=== PATIENT | female | born 1980 | race Caucasian/White ===

== ENCOUNTER 2018-03-25 09:57 | Inpatient (IN) ==
--- NOTE | 2018-03-25 10:45 | ED ---
History of Present Illness Primary Care Physician: Catalino Cooper Chief Complaint: Shortness of breath History of Present Illness: Patient is a 38-year-old white female now at [address] Cooper at [facility] for care and presents complaining of shortness of breath began yesterday and seems to be getting worse. She has no history of respiratory disease no history of asthma no similar history of this type of problem before. She is breathing of about 20 times a minute and interestingly she also is quite tachycardic with a heart rate in the 140-160s and she has no history of this type of problem either. She denies abdominal pain however she is rm every 2-1/2 minutes, denies leaking of fluid or vaginal bleeding. heart rate tracing is reactive at this time however when she was first placed on the monitor the baby's heart rate was in the 90s and it came up to in the 145 150 range in that range she has moderate variability and has had several small accelerations on left color reactive but just barely so, she is a negative contraction stress test however Weeks Gestation:: 39 Para: 2 : 4 Total # of Miscarriage(s): 1 Review of Systems All other systems reviewed negative except as stated [facility] - Social History I have reviewed the patient's Social History: Yes - Tobacco History Smoking Status: Never smoker - Alcohol History How Often Do You Have a Drink Containing Alcohol: Never - Substance Use History Substance History: No History of Abuse - Travel History History of Recent Travel: No Recent Travel in the [place] Within the Last 8 Weeks: No Recent Travel Out of the Country Within the Last 8 Weeks: No Medications and Allergies Allergies Allergy/AdvReac Type Severity Reaction Status Date / Time No Known Allergies Uncoded 12/14/10 12:32 Exam Vital signs: Vital Signs 03/25/18 10:20 03/25/18 10:21 Temperature 97.9 F Pulse Rate 157 H Respiratory Rate 20 Blood Pressure 109/75 Narrative: GENERAL: Well-nourished, well-developed patient. SKIN: Warm and dry. HEAD: Normocephalic and atraumatic. EYES: No scleral icterus. No injection or drainage. ENT: No nasal drainage noted. Mucous membranes pink. Airway patent. NECK: Supple, trachea midline. No JVD. CARDIOVASCULAR: Tachycardic rate and regular rhythm without murmurs, gallops, or rubs. RESPIRATORY: Breath sounds equal bilaterally. No accessory muscle use. BREASTS: Bilateral exam showed no masses , no retractions, no nipple discharge. ABDOMEN/GI: Abdomen soft, non-tender, bowel sounds present, no rebound, no guarding Gravid to [-37] weeks size Fundal Height: [37-] GENITOURINARY: External Genitalia: intact and normal in appearance BUS glands: [-] Cervix: [-post] Dilatation: [2-3-] Effacement: [-40] Station: [-1] Presentation: [Vertex, the head is quite low in the pelvis but cervix goes around posteriorly and is very far back-] Membranes: [intact ] Uterine Contractions: [Every 2-1/2 minutes-] FHT's: Category: [1-] Baseline: [-145] Reactive: [-Suspicious NST] Variability: [mod-] Decels: [-1 variable decelerations once placed on the monitor none since] EXTREMITIES: No cyanosis or edema. BACK: Nontender without obvious deformity. No CVA tenderness. NEUROLOGICAL: Awake and alert. Motor and sensory grossly within normal limits. Five out of 5 muscle strength in all muscle groups. Normal speech. Assessment and Plan - Diagnosis (1) Shortness of breath due to in third trimester Code(s): O26.893 - Other specified related conditions, third trimester ; R06.02 - Shortness of breath Status: Acute (2) Tachycardia with heart rate 141-160 beats per minute Code(s): R00.0 - Tachycardia, unspecified Status: Acute (3) 39 weeks gestation of Code(s): Z3A.39 - 39 weeks gestation of Status: Acute - Plan Plan for this multiparous patient at 39 weeks with tachycardia and shortness of breath is VQ scan or CT scan depending on the ease of availability to rule out pulmonary embolus, prolonged monitoring of fetus, will discuss patient with her OB private provider Discharge Plan - Physicians Team ED Provider: Bob Lobato Primary Care Provider: Catalino Escobar - Discharge Instructions Print Language: Niuean
[2018-03-25 11:02] LABS: Hematocrit 34.4 % (35.0-46.0); Hemoglobin 10.9 gm/dL (11.6-15.3); Mean Corpuscular HGB Conc 31.8 % (32.0-36.0); Mean Corpuscular Hemoglobin 23.5 pg (27.0-34.0); Mean Corpuscular Volume 74.1 fL (80.0-100.0); Mean Platelet Volume 7.9 fL (7.0-11.0); Platelet Count 307 th/mm3 (150-450); Red Blood Count 4.65 mil/mm3 (4.00-5.30); Red Cell Distribution Width 16.4 % (11.6-17.2); White Blood Count 7.5 th/mm3 (4.0-11.0)
[2018-03-25 11:18] LABS: Alanine Aminotransferase 10 U/L (10-53); Albumin 2.7 g/dL (3.4-5.0); Anion Gap 10 meq/L (5-15); Aspartate Aminotransferase 16 U/L (15-37); Blood Urea Nitrogen 8 mg/dL (7-18); Calcium 8.6 mg/dL (8.5-10.1); Carbon Dioxide 22.7 meq/L (21.0-32.0); Chloride 103 meq/L (98-107); Glomerular Filtration Rate 62 mL/min (>89); Glucose,Random 98 mg/dL (74-106); Sodium 136 meq/L (136-145)
[2018-03-25 11:20] LABS: Alkaline Phosphatase 177 U/L (45-117); Total Protein 7.5 g/dL (6.4-8.2)
--- NOTE | 2018-03-25 12:59 | NM ---
EXAM DATE: 03/25/2018 12:46 PM EST AGE/SEX: 38 years / Female INDICATIONS: Shortness of breath. 39 weeks . CLINICAL DATA: This is the patient's initial encounter. Patient reports that signs and symptoms have been present for 2 days and indicates a pain score of 0/10. MEDICAL/SURGICAL HISTORY: None. None. COMPARISON: [facility], CHEST 1V SINGLE AP, 03/25/2018. . DOSE: 1 mCi Tc99m MAA IV. TECHNIQUE: The patient was injected with MAA, and eight-view perfusion scan was performed. FINDINGS: Perfusion: Multiple peripheral subsegmental perfusion abnormalities are identified in both lungs. Th ere are no corresponding radiographic lung opacities. CONCLUSION: Multiple bilateral subsegmental perfusion abnormalities characteristic of a high risk of pulmonary em bolism. Electronically signed by: Hi Moses MD Board Certified Radiologist 03/25/2018 12:58 PM EST
--- NOTE | 2018-03-25 13:03 | XR ---
EXAM DATE: 03/25/2018 12:57 PM EST AGE/SEX: 38 years / Female INDICATIONS: Post lung perfusion scan. CLINICAL DATA: This is the patient's initial encounter. Patient reports that signs and symptoms have been present for 1 day and indicates a pain score of 0/10. MEDICAL/SURGICAL HISTORY: None. None. COMPARISON: No prior exams available for comparison. FINDINGS: A single AP view of the chest demonstrates the lungs to be symmetrically aerated without evidence of mass, infiltrate or effusion. The cardiomediastinal contours are unremarkable. Osseous structures a re intact. CONCLUSION: No evidence of acute cardiopulmonary process. Electronically signed by: Hi Moses MD Board Certified Radiologist 03/25/2018 1:02 PM EST
--- NOTE | 2018-03-25 13:25 | P.HPOB ---
Patient Name: Cathie De Leon Date of : 82 Patient Status: Emergency Emergency Provider: Bob Lobato Date: 03/25/18 10:38 Initialization Date: 03/25/18 10:38 Addendum entered and electronically signed by Bob Lobato MD 03/25/18 13:17: Perfusion radiogragh -- multiple PE likely bilaterally Original Note: History of Present Illness Primary Care Physician: Catalino Cooper Chief Complaint: Shortness of breath History of Present Illness: Patient is a 38-year-old white female now at [address] Cooper at [facility] for care and presents complaining of shortness of breath began yesterday and seems to be getting worse. She has no history of respiratory disease no history of asthma no similar history of this type of problem before. She is breathing of about 20 times a minute and interestingly she also is quite tachycardic with a heart rate in the 140-160s and she has no history of this type of problem either. She denies abdominal pain however she is rm every 2-1/2 minutes, denies leaking of fluid or vaginal bleeding. heart rate tracing is reactive at this time however when she was first placed on the monitor the baby's heart rate was in the 90s and it came up to in the 145 150 range in that range she has moderate variability and has had several small accelerations on left color reactive but just barely so, she is a negative contraction stress test however Weeks Gestation:: 39 Para: 2 : 4 Total # of Miscarriage(s): 1 Review of Systems All other systems reviewed negative except as stated [facility] - Social History I have reviewed the patient's Social History: Yes - Tobacco History Smoking Status: Never smoker - Alcohol History How Often Do You Have a Drink Containing Alcohol: Never - Substance Use History Substance History: No History of Abuse - Travel History History of Recent Travel: No Recent Travel in the [place] Within the Last 8 Weeks: No Recent Travel Out of the Country Within the Last 8 Weeks: No Medications and Allergies Allergies Allergy/AdvReac Type Severity Reaction Status Date / Time No Known Allergies Uncoded 12/14/10 12:32 Exam Vital signs: Vital Signs 03/25/18 10:20 03/25/18 10:21 Temperature 97.9 F Pulse Rate 157 H Respiratory Rate 20 Blood Pressure 109/75 Narrative: GENERAL: Well-nourished, well-developed patient. SKIN: Warm and dry. HEAD: Normocephalic and atraumatic. EYES: No scleral icterus. No injection or drainage. ENT: No nasal drainage noted. Mucous membranes pink. Airway patent. NECK: Supple, trachea midline. No JVD. CARDIOVASCULAR: Tachycardic rate and regular rhythm without murmurs, gallops, or rubs. RESPIRATORY: Breath sounds equal bilaterally. No accessory muscle use. BREASTS: Bilateral exam showed no masses , no retractions, no nipple discharge. ABDOMEN/GI: Abdomen soft, non-tender, bowel sounds present, no rebound, no guarding Gravid to [-37] weeks size Fundal Height: [37-] GENITOURINARY: External Genitalia: intact and normal in appearance BUS glands: [-] Cervix: [-post] Dilatation: [2-3-] Effacement: [-40] Station: [-1] Presentation: [Vertex, the head is quite low in the pelvis but cervix goes around posteriorly and is very far back-] Membranes: [intact ] Uterine Contractions: [Every 2-1/2 minutes-] FHT's: Category: [1-] Baseline: [-145] Reactive: [-Suspicious NST] Variability: [mod-] Decels: [-1 variable decelerations once placed on the monitor none since] EXTREMITIES: No cyanosis or edema. BACK: Nontender without obvious deformity. No CVA tenderness. NEUROLOGICAL: Awake and alert. Motor and sensory grossly within normal limits. Five out of 5 muscle strength in all muscle groups. Normal speech. Assessment and Plan - Diagnosis (1) Shortness of breath due to in third trimester Code(s): O26.893 - Other specified related conditions, third trimester ; R06.02 - Shortness of breath Status: Acute (2) Tachycardia with heart rate 141-160 beats per minute Code(s): R00.0 - Tachycardia, unspecified Status: Acute (3) 39 weeks gestation of Code(s): Z3A.39 - 39 weeks gestation of Status: Acute - Plan Plan for this multiparous patient at 39 weeks with tachycardia and shortness of breath is VQ scan or CT scan depending on the ease of availability to rule out pulmonary embolus, prolonged monitoring of fetus, will discuss patient with her OB private provider Discharge Plan - Physicians Team ED Provider: Bob Lobato Primary Care Provider: Catalino Escobar - Discharge Instructions Print Language: [place]an
[2018-03-25 13:57] LABS: INR 0.9 Ratio; Prothrombin Time 9.5 sec (9.8-11.6)
--- NOTE | 2018-03-25 14:57 | US ---
EXAM DATE: 03/25/2018 2:51 PM EST AGE/SEX: 38 years / Female INDICATIONS: Bilateral leg pain. CLINICAL DATA: This is the patient's initial encounter. Patient reports that signs and symptoms have been present for 2 days and indicates a pain score of 2/10. MEDICAL/SURGICAL HISTORY: . None. COMPARISON: No prior exams available for comparison. TECHNIQUE: Venous ultrasound of both lower extremities was performed from the inguinal ligament to t he proximal calf. Real-time, color Doppler and spectral tracing, compression and augmentation techni ques were used. FINDINGS: Right Leg: Normal compression of the deep venous system from the inguinal region to the proximal sparkle f. No echogenic clot is seen. Normal response of the venous system to augmentation and respiration. Left Leg: Focal thrombus in the left common femoral vein. Remainder of the deep venous system from t he inguinal region to the proximal calf demonstrates normal compression without echogenic thrombus. N ormal response to augmentation and respiration. Other: None. CONCLUSION: 1. Focal left common femoral vein DVT. 2. No sonographic evidence for right lower extremity DVT. Electronically signed by: Phill Hollis MD Board Certified Radiologist 03/25/2018 2:56 PM PAT T
[2018-03-25] MEDS ORDERED: Heparin Drip 25,000 UNIT/250 ML BAG IV.CONT PRN (15:01)
--- NOTE | 2018-03-25 15:42 | P.HPOB ---
History of Present Illness Service: Obstetrics Primary Care Physician: Catalino Escobar Chief Complaint: Shortness of breath History of Present Illness: 38 yo with thomas IUP at 39w1d (EDC 03/31/18) presented to OB ED for shortness of breath, found to by tachypneic and tachycardic, OB Hospitalist Dr. Bob Lobato ordered VQ scan and radiology reading "multiple peripheral subsegmental perfusion abnormalities are identified in both lungs. There are no corresponding radiographic lung opacities." Patient's up until this time had been uncomplicated, sees Dr. Tejal Cooper in my practice for OB care, I am meeting patient for first time today. Patient has no reported history of asthma or history of thrombotic event personally or in family. Is non-smoker, normal BMI at beginning of , has gained appropaimtely 20 pounds since initial visit at 10 weeks. GBS is negative. There was a lab error in first trimester that showed a positive urine drug screen but repeat testing was negative and lab verified there was an error with multiple urine drug screen results at the time the patient was tested, which is consistent with her history and denial of any illicit drug use. Blood pressure has been normal at all visits, she has been seen 11 times starting at 10 weeks. Based on VQ results multiple consultants were immediately called, including interventional radiology, glass bender, truer pinion and wheel, and critical care. At this time patient is being transferred to ICU, Dr. Luu has accepted patient and will evaluate on arrival to the floor. Heparin drip with bolus dosing has been started on Labor and Delivery emergency room. Patient is rm on the monitor but over 5 hours period her cervical exam has not changed, remains 2-3/40-50/-1, very posterior. Weeks Gestation:: 39 Para: 2 : 4 Total # of Miscarriage(s): 1 Review of Systems All other systems reviewed negative except as stated in HPI [facility] - Medical / Surgical Hx Neg / Unobtainable Medical Problems Denied: Yes Surgical History: No Previous Surgery - Social History I have reviewed the patient's Social History: Yes - Tobacco History Second Hand Smoke Exposure: No Tobacco Use In Past 30 Days: No Smoking Status: Never smoker - Alcohol History How Often Do You Have a Drink Containing Alcohol: Never - Substance Use History Substance History: No History of Abuse - Travel History History of Recent Travel: No Recent Travel in the [place] Within the Last 8 Weeks: No Recent Travel Out of the Country Within the Last 8 Weeks: No Medications and Allergies Active Medications: Active Medications Heparin Sodium/Dextrose (Heparin/D5w 25,000 U/250 Ml) 25,000 unit in 250 mls @ 13 mls/hr IV.CONT TITRATE PRN; Protocol PRN Reason: Per Protocol Last Admin: 03/25/18 15:18 Dose: 1,300 units/hr, 13 mls/hr Lidocaine HCl (Xylocaine 1% Inj) 0.1 ml I-DERMAL PRN PRN PRN Reason: For IV start Stop: 03/28/18 14:57 Sodium Chloride (Ns Flush) 2 ml IV.FLUSH BID ANNABELLE Last Admin: 03/25/18 15:18 Dose: 2 ml Sodium Chloride (Ns Flush) 2 ml IV.FLUSH PRN PRN PRN Reason: FLUSH AFTER USING IV ACCESS Allergies Allergy/AdvReac Type Severity Reaction Status Date / Time No Known Allergies Allergy Verified 03/25/18 11:00 Home Medications Medication Instructions Recorded Confirmed Type vit,[id number] 1 tab PO DAILY 03/25/18 03/25/18 History [PNV 29-1] Exam Vital signs: Vital Signs 03/25/18 10:20 03/25/18 10:21 03/25/18 10:25 Temperature 97.9 F Pulse Rate 157 H 72 Respiratory Rate 20 Blood Pressure 109/75 03/25/18 10:35 03/25/18 11:05 03/25/18 11:40 Temperature Pulse Rate 142 H 135 H 141 H Respiratory Rate Blood Pressure 03/25/18 11:55 03/25/18 13:20 03/25/18 13:25 Temperature Pulse Rate 141 H 128 H 132 H Respiratory Rate Blood Pressure 03/25/18 13:35 03/25/18 13:50 03/25/18 14:05 Temperature Pulse Rate 128 H 140 H 135 H Respiratory Rate Blood Pressure 03/25/18 14:10 03/25/18 14:30 03/25/18 15:00 Temperature Pulse Rate 130 H 131 H 127 H Respiratory Rate Blood Pressure 03/25/18 15:05 03/25/18 15:10 03/25/18 15:20 Temperature Pulse Rate 129 H 126 H 127 H Respiratory Rate Blood Pressure Intake & Output 03/24/18 03/25/18 03/25/18 18:59 06:59 18:59 Weight 73.936 kg - Constitutional moderate distress - Routine HEENT Exam Head: Present: normocephalic, atraumatic Eye: Present: EOMI ENT: Present: mucous membranes moist - Routine Neck Exam Present: supple, full ROM - Routine Chest/Breast/Axilla Exam Chest wall: Absent: tenderness, mass - Routine Respiratory Exam Comments: short of breath, worsens with talking, tachypneic - Routine Cardiovascular Exam Present: tachycardia - Routine Abdominal Exam Comments: gravid c/w dates - Routine Extremities Exam Present: pulses intact. Absent: pallor - Routine Skin Exam Present: intact. Absent: erythema - Routine Neurological Exam Present: alert, oriented X3 Results - Labs CBC & Chem 7: 03/25/18 10:50 03/25/18 10:50 Labs: Laboratory Results - last 24 hr 03/25/18 03/25/18 03/25/18 10:50 10:50 13:35 WBC 7.5 RBC 4.65 Hgb 10.9 L Hct 34.4 L MCV 74.1 L MCH 23.5 L MCHC 31.8 L RDW 16.4 Plt Count 307 MPV 7.9 PT INR APTT 25.9 Sodium 136 Potassium 4.0 Chloride 103 Carbon Dioxide 22.7 Anion Gap 10 BUN 8 Creatinine 1.00 Estimated GFR 62 L Random Glucose 98 Calcium 8.6 Total Bilirubin 0.9 AST 16 ALT 10 Alkaline Phosphatase 177 H Total Protein 7.5 Albumin 2.7 L 03/25/18 13:35 WBC RBC Hgb Hct MCV MCH MCHC RDW Plt Count MPV PT 9.5 L INR 0.9 APTT Sodium Potassium Chloride Carbon Dioxide Anion Gap BUN Creatinine Estimated GFR Random Glucose Calcium Total Bilirubin AST ALT Alkaline Phosphatase Total Protein Albumin Group B Strep: Negative - Imaging Impressions Chest X-Ray 03/25/18 00:00 CONCLUSION: No evidence of acute cardiopulmonary process. Pulmonary Perfusion Imaging 03/25/18 10:53 CONCLUSION: Multiple bilateral subsegmental perfusion abnormalities characteristic of a high risk of pulmonary embolism. Venous Doppler Study 03/25/18 13:40 CONCLUSION: 1. Focal left common femoral vein DVT. 2. No sonographic evidence for right lower extremity DVT. Caprini VTE Risk Assessment Caprini VTE Risk Assessment: Moderate/High Risk (score >= 2) (starting Heparin drip now) Caprini Risk Assessment Model: Point Value = 1 Point Value = 2 Point Value = 3 Point Value = 5 Age 41-60 Minor surgery BMI > 25 kg/m2 Swollen legs Varicose veins or History of unexplained or recurrent spontaneous Oral contraceptives or hormone replacement Sepsis (< 1 month) Serious lung disease, including pneumonia (< 1 month) Abnormal pulmonary function Acute myocardial infarction Congestive heart failure (< 1 month) History of inflammatory bowel disease Medical patient at bed rest Age 61-74 Arthroscopic surgery Major open surgery (> 45 min) Laparoscopic surgery (> 45 min) Malignancy Confined to bed (> 72 hours) Immobilizing plaster cast Central venous access Age >= 75 History of VTE Family history of VTE Factor V Leiden Prothrombin [id number] Lupus anticoagulant Anticardiolipin antibodies Elevated serum homocysteine Heparin-induced thrombocytopenia Other congenital or acquired thrombophilia Stroke (< 1 month) Elective arthroplasty Hip, pelvis, or leg fracture Acute spinal cord injury (< 1 month) Prophylaxis Regimen: Total Risk Factor Score Risk Level Prophylaxis Regimen 0-1 Low Early ambulation 2 Moderate Order ONE of the following: *Sequential Compression Device (SCD) *Heparin 5000 units SQ BID 3-4 Higher Order ONE of the following medications: *Heparin 5000 units SQ TID *Enoxaparin/Lovenox 40 mg SQ daily (WT < 150 kg, CrCl > 30 mL/min) *Enoxaparin/Lovenox 30 mg SQ daily (WT < 150 kg, CrCl > 10-29 mL/min) *Enoxaparin/Lovenox 30 mg SQ BID (WT < 150 kg, CrCl > 30 mL/min) AND/OR *Sequential Compression Device (SCD) 5 or more Highest Order ONE of the following medications: *Heparin 5000 units SQ TID (Preferred with Epidurals) *Enoxaparin/Lovenox 40 mg SQ daily (WT < 150 kg, CrCl > 30 mL/min) *Enoxaparin/Lovenox 30 mg SQ daily (WT < 150 kg, CrCl > 10-29 mL/min) *Enoxaparin/Lovenox 30 mg SQ BID (WT < 150 kg, CrCl > 30 mL/min) AND *Sequential Compression Device (SCD) Assessment and Plan - Diagnosis (1) Acute pulmonary embolism Code(s): I26.99 - Other pulmonary embolism without acute cor pulmonale Status : Acute (2) 39 weeks gestation of Code(s): Z3A.39 - 39 weeks gestation of Status: Acute - Plan 38 yo with thomas IUP at 39w1d admit for acute pulmonary embolism, transferring to critical care currently, heparin drip started, s/p consult with Pulmonology, pending consults with critical care & hematology. Not currently in labor, for continuous monitoring due to full term status and contractions when in labor, labor nurse to follow patient to ICU for continuous monitoring. Discharge Planning: not meeting criteria
--- NOTE | 2018-03-25 15:59 | P.CONCC ---
History of Present Illness Service: Critical care Consult date: 03/25/18 Requesting Physician: Mela Jean Reason for Consult: Acute PE Primary Care Provider: Catalino Escobar Chief Complaint: Shortness of breath History of Present Illness: Patient is a 38 yo female who is 39 weeks who presented to the OB ED for shortness of breath.patient and was found to be tachypneic and tachycardic. Due to suspected. A VQ scan was ordered which was high probability of for PE. Venous ultrasound showed focal left common femoral vein DVT.critical care and pulmonary was consulted. I have discussed this case with manager financial reporting Dr. Xie also. Both of us agree that patient needs therapeutic anticoagulation and to be started immediately. I have started patient on heparin with boluses per PE protocol. After starting heparin patient was moved to the [facility] [place] evaluated her. Patient at this point is slightly tachypneic remains tachycardic anxious. She is maintaining oxygen saturation. I also discussed extensively with Dr. Ted GILLIS. If patient goes into labor I recommended holding heparin at that time starting CORBIN after delivery. However for any invasive procedures I recommend waiting at least 24 hours of anticoagulation, if possible. If there is significant postop bleeding we will place DVT filter. Bedside echo performed by myself showed severely Dilated RV with McConnel sign. Patient is not a candidate for IV TPA due to 39 weeks . I will order a Stat 2D echo. May use dobutamine/milrinone for inotropic support if needed Review of Systems All other systems reviewed negative except as stated in HPI PMFSH - History History Provided By: Patient - Tobacco History Second Hand Smoke Exposure: No Tobacco Use In Past 30 Days: No Smoking Status: Never smoker - Alcohol History How Often Do You Have a Drink Containing Alcohol: Never - Substance Use History Substance History: No History of Abuse - Travel History History of Recent Travel: No Recent Travel in the [place] Within the Last 8 Weeks: No Recent Travel Out of the Country Within the Last 8 Weeks: No Medications and Allergies Active Medications: Active Medications Heparin Sodium/Dextrose (Heparin/D5w 25,000 U/250 Ml) 25,000 unit in 250 mls @ 13 mls/hr IV.CONT TITRATE PRN; Protocol PRN Reason: Per Protocol Last Admin: 03/25/18 15:18 Dose: 1,300 units/hr, 13 mls/hr Ipratropium [place] (Atrovent Neb) 0.5 mg NEB Q4HR NEB PRN PRN Reason: DYSPNEA Lidocaine HCl (Xylocaine 1% Inj) 0.1 ml I-DERMAL PRN PRN PRN Reason: For IV start Stop: 03/28/18 14:57 Sodium Chloride (Ns Flush) 2 ml IV.FLUSH BID ANNABELLE Last Admin: 03/25/18 15:18 Dose: 2 ml Sodium Chloride (Ns Flush) 2 ml IV.FLUSH PRN PRN PRN Reason: FLUSH AFTER USING IV ACCESS Allergies Allergy/AdvReac Type Severity Reaction Status Date / Time No Known Allergies Allergy Verified 03/25/18 11:00 Home Medications Medication Instructions Recorded Confirmed Type vit,[id number]-rqoqi 1 tab PO DAILY 03/25/18 03/25/18 History [PNV 29-1] Physical Exam Vital signs: Vital Signs 03/25/18 10:20 03/25/18 10:21 03/25/18 10:25 Temperature 97.9 F Pulse Rate 157 H 72 Respiratory Rate 20 Blood Pressure 109/75 03/25/18 10:35 03/25/18 11:05 03/25/18 11:40 Temperature Pulse Rate 142 H 135 H 141 H Respiratory Rate Blood Pressure 03/25/18 11:55 03/25/18 13:20 03/25/18 13:25 Temperature Pulse Rate 141 H 128 H 132 H Respiratory Rate Blood Pressure 03/25/18 13:35 03/25/18 13:50 03/25/18 14:05 Temperature Pulse Rate 128 H 140 H 135 H Respiratory Rate Blood Pressure 03/25/18 14:10 03/25/18 14:30 03/25/18 15:00 Temperature Pulse Rate 130 H 131 H 127 H Respiratory Rate Blood Pressure 03/25/18 15:05 03/25/18 15:10 03/25/18 15:20 Temperature Pulse Rate 129 H 126 H 127 H Respiratory Rate Blood Pressure 03/25/18 15:25 03/25/18 15:26 03/25/18 15:30 Temperature Pulse Rate 127 H 123 H 137 H Respiratory Rate 18 Blood Pressure 111/75 03/25/18 15:35 Temperature Pulse Rate 128 H Respiratory Rate Blood Pressure Intake & Output 03/24/18 03/25/18 03/25/18 18:59 06:59 18:59 Weight 73.936 kg Narrative: GENERAL: Well-nourished, well-developed patient. Mildly anxious SKIN: Warm and dry. HEAD: Normocephalic and atraumatic. EYES: No scleral icterus. No injection or drainage. ENT: No nasal drainage noted. Mucous membranes pink. Airway patent. NECK: Supple, trachea midline. No JVD. CARDIOVASCULAR: Tachycardic, regular rhythm without murmurs, gallops, or rubs. Bedside echo: dilated RV with moderate dysfunction, Hunter sign + RESPIRATORY: Breath sounds equal bilaterally. No accessory muscle use. Slightly tachypneic EXTREMITIES: Left calf is slightly more swollen than the right BACK: Nontender without obvious deformity. No CVA tenderness. NEUROLOGICAL: Awake and alert. Motor and sensory grossly within normal limits. Normal speech. Septic Shock Reassessment Septic shock perfusion: reassessment completed Assessment and Plan - Assessment and Plan Plan: ASSESSMENT: Acute pulmonary embolism RV strain on bedside echo (Dilated RV with moderate dysfunction, Hunter sign +) Tachycardia Right lower extremity DVT 39 weeks gestation PLAN: NEURO: -Minimize all sedation -Neuro exam per ICU protocol while on IV heparin RESP: -Patient has acute pulmonary embolism based on VQ scan showing high probability and right lower extremity DVT -Immediately started on IV heparin per protocol with boluses -Bedside echo shows dilated RV with moderate dysfunction and Hunter sign, unfortunately not a candidate for TPA as she is 39 weeks -No indication for CT angiogram at this time, clot burden is probably massive as there is RV strain -STAT Echo with TAPSE calculation is pending -In case of cardiac arrest management decisions will be difficult in regard to emergency C section vs TPA -We will hold IV heparin temporarily if patient goes into delivery and immediately will restart CV: -Normal saline IV fluids, bedside echo as above, bedside echo as above, 2d echo pending, check troponin -Use dobutamine/Milrinone as needed for right ventricular support and especially during her delivery GI: -Regular diet : -Monitor renal function closely. Khalil catheter for strict I/O -OBGYN management per Dr. Jean ID: -Monitor closely for infection HEME: -Monitor CBC, coags, IV heparin as above ENDO: -Electrolyte replacement per protocol PROPH: -IV Heparin/famotidine LINES: -Utilize peripheral IVs, central line if needed CC time 90 min including multiple visits to stabilize, interpretation of data, discussion with multiple specialists including SECURITIES CONSULTANT, pulmonology, cardiology. Addendum 2 D Echo: Normal left ventricular size. Wall thickness is normal. The left ventricular systolic function is normal with an estimated ejection fraction in the range of 60-65%. There is systolic septal wall flattening "D sign"consistent with pressure overload. The right ventricle is moderate-to- severely dilated. The right ventricular systolic function is moderately decreased. The right atrial size is moderately dilated. There is mild tricuspid valve regurgitation. The estimated pulmonary arterial pressure is 68 mmHg. There is estimated ktlkzmlu-my-zuvhon pulmonary hypertension present ( range 60-70 mmHg). Case extensively discussed with interventional radiologist Dr. Fisher, catheter and related TPA is not an option. We could consider catheter directed low-dose TPA post delivery depending on clinical scenario and repeat echo. Initial plan was to continue supportive care, plan for induction and vaginal delivery. However anesthesiology raised concern about increased intrathoracic pressure with Valsalva and labor, and further hemodynamic compromise from RV dysfunction. Because of need for advanced RV support and possibly ECMO, patient will be transferred to [facility]. Signed off to Dr. Ward CCT additional 50 MIN Code Status: full Discussed Condition With: Mihaela Jean and Rojas
--- NOTE | 2018-03-25 16:32 | MB ---
cc: Logan Aguilera MD DATE: 03/25/2018 HISTORY OF PRESENT ILLNESS: The patient is a 38-year-old female and G4, P2, at 39-weeks gestation, who presented to [facility] OB/ED with complaints of shortness of breath for the past 3 days that progressively worsened. The patient reports edema of her feet; however, she denies any associated symptoms of chest pain, cough or any constitutional symptoms. In addition, she denies any wheezing. On arrival, she was tachycardic with heart rate of 120s-130s and blood pressure of 111/75. Chest x-ray showed no evidence of any acute cardiopulmonary process. The patient underwent a V/Q scan, which showed multiple bilateral subsegmental perfusion abnormalities characteristic of a high risk of pulmonary embolism. She also had a venous Doppler ultrasound, which showed a focal left common femoral vein DVT. She was started on a heparin drip. The patient is in the process of [place] [facility] [place] with a critical care consult. Discussed with Dr. uLu and Dr. Jean from OB. The patient is awake, alert. She is currently on room air oxygen with a saturation of 95%-98% and tachycardic with heart rate of 120s. She denies any history of thromboembolism or any lung diseases. The patient denies any abdominal pain; however, she is rm every two and a half minutes. PAST MEDICAL HISTORY: G4, para 2 at 39 weeks gestation. PAST SURGICAL HISTORY: Adenoidectomy and tonsillectomy. SOCIAL HISTORY: Nonsmoker, nondrinker. MEDICATIONS AT HOME: vitamins. FAMILY HISTORY: The patient denies any family history of thromboembolism. REVIEW OF SYSTEMS: As per HPI. The rest of review of systems unremarkable. PHYSICAL EXAMINATION: GENERAL: A 38-year-old female lying in bed in no acute distress; however, she is tachycardic and mildly tachypneic. VITAL SIGNS: Temperature 97.9, pulse of 120s-130s, blood pressure 109/75, saturation 95%-98% on room air. HEENT: Atraumatic, normocephalic. Pupils are equal, round, reactive to light and accommodation. Extraocular muscles intact. Conjunctivae pink. Nonicteric sclerae. Oral mucosa within normal. NECK: Supple. No JVD, adenopathy, or thyromegaly. Trachea midline. CARDIOVASCULAR: Tachycardic. Normal S1, S2. No murmurs, rubs or gallops noted. PULMONARY: Bilateral equal air entry. No rales or wheezing. ABDOMEN: Soft, nontender, positive bowel sounds. No guarding. EXTREMITIES: No cyanosis or clubbing. Trace edema. NEUROLOGIC: No focal sensory deficit. LABORATORY DATA: WBC 7.5, hemoglobin 10.9, hematocrit 34, platelet count of 307. Sodium 136, potassium 4, chloride 103, CO2 of 22, BUN 8, creatinine 1, glucose of 98. AST 16, ALT 10, total bilirubin 0.9, alkaline phosphatase 177, albumin 2.7. RADIOGRAPHIC STUDIES: 1. V/Q scan of the chest showed high probability for PE. 2. Venous Doppler ultrasound of lower extremity showed DVT left lower extremity. 3. Chest x-ray showed no evidence of acute disease. IMPRESSION: 1. Pulmonary embolism. 2. Deep venous thrombosis of left lower extremity. 3. A 39-week gestation. 4. Anemia. RECOMMENDATIONS: 1. Oxygen p.r.n. to maintain sats above 92%. 2. Bronchodilators on a p.r.n. basis. 3. Patient was started on heparin drip. Monitor PTT per protocol. 4. We will obtain a 2-D echo to evaluate LV function and to rule out RV strain. 5. Monitor CBC and coags as the patient is on heparin drip. Case discussed with Dr. Jean from OB and with Dr. Luu. Further recommendations will be based on hospital course. Thank you for this consultation and allowing us to participate in this patient's care. MD ADEN Washington/kamila/kourtney , 03:42 PM , 03:55 PM
[2018-03-25] MEDS ORDERED: Sod Chloride 0.9% Inj 1,000 ML IV.CONT SCH (17:00)
[2018-03-25 17:21] LABS: Activated Partial Thrombo Time 30.3 sec (23.4-31.7); Prothrombin Time 9.8 sec (9.8-11.6)
--- NOTE | 2018-03-25 17:23 | ECHRPT ---
Indication: PE CONCLUSIONS Normal left ventricular size. Wall thickness is normal. The left ventricular systolic function is normal with an estimated ejection fraction in the range of 60-65%. There is systolic septal wall flattening "D sign"consistent with pressure overload. The right ventricle is kobsaipa-xk-febwgwzt dilated. The right ventricular systoilc function is moderately decreased. The right atrial size is moderately dilated. There is mild tricuspid valve regurgitation. The estimated pulmonary arterial pressure is 68 mmHg. There is estimated cixljxjx-ai-gydwrf pulmonary hypertension present (range 60-70 mmHg). BP: / HR: Rhythm: MEASUREMENTS (Male / Female) Normal Values Technical Quality: 2D ECHO LV Diastolic Diameter PLAX 4.0 cm 4.2 - 5.9 / 3.9 - 5.3 cm LV Systolic Diameter PLAX 3.0 cm IVS Diastolic Thickness 1.0 cm 0.6 - 1.0 / 0.6 - 0.9 cm LVPW Diastolic Thickness 0.7 cm 0.6 - 1.0 / 0.6 - 0.9 cm LV Relative Wall Thickness 0.4 RV Internal Dim ED PLAX 3.5 cm M-MODE AV Cusp Separation MM 1.6 cm DOPPLER AV Peak Velocity 97.0 cm/s AV Peak Gradient 3.8 mmHg LVOT Peak Velocity 55.8 cm/s LVOT Peak Gradient 1.2 mmHg Mitral E Point Velocity 48.9 cm/s Mitral A Point Velocity 63.2 cm/s Mitral E to A Ratio 0.8 TR Peak Velocity 383.0 cm/s TR Peak Gradient 58.7 mmHg Right Atrial Pressure 10.0 mmHg Pulmonary Artery Systolic Pressu 68.7 mmHg Right Ventricular Systolic Press 68.7 mmHg FINDINGS LEFT VENTRICLE Normal left ventricular size. Wall thickness is normal. The left ventricular systolic function is normal with an estimated ejection fraction in the range of 60-65%. There is systolic septal wall flattening "D sign"consistent with pressure overload. RIGHT VENTRICLE The right ventricle is qkoryylg-kg-bdlbtwve dilated. The right ventricular systoilc function is moderately decreased. LEFT ATRIUM The left atrial size is normal. RIGHT ATRIUM The right atrial size is moderately dilated. ATRIAL SEPTUM Normal atrial septal thickness without atrial level shunting by limited color doppler interrogation. AORTA The aortic root and proximal ascending aorta are normal in size on limited imaging. MITRAL VALVE Structurally normal mitral valve. No mitral valve stenosis or regurgitation. AORTIC VALVE Trileaflet aortic valve. No aortic valve stenosis or regurgitation. TRICUSPID VALVE There is mild tricuspid valve regurgitation. The estimated pulmonary arterial pressure is 68 mmHg. There is estimated vvrpqhpo-um-khulwq pulmonary hypertension present (range 60-70 mmHg). PULMONARY VALVE No pulmonary valve regurgitation or stenosis. VESSELS The inferior vena cava is normal in size. PERICARDIUM No pericardial effusion. Heladio Morin MD, FACC (Electronically Signed) Final Date:25 March 2018 17:22
--- NOTE | 2018-03-25 19:04 | P.CON ---
History of Present Illness Service: Hematology. Consult date: 03/25/18 Requesting Physician: Mela Jean Reason for Consult: Bilateral pulmonary emboli and right lower extremity deep venous thrombosis Primary Care Provider: Catalino Escobar Chief Complaint: Shortness of breath for the past 3 days. History of Present Illness: Ms. De Leon is a very pleasant 38-year-old female, she is 39 weeks with her third . The patient reports having had increased difficulty breathing over the past 2 weeks which he thought was normal for late third trimester . Over the past 2 days her breathing difficulty is worsened to the point where she gets short of breath and experiences palpitations after walking to 3 steps. She reported the symptoms to her primary OB and was advised evaluation in the OB emergency department. Patient underwent a VQ scan which revealed high probability for bilateral pulmonary emboli, ultrasound Doppler studies of lower extremity indicated a left lower extremity deep venous thrombosis involving a segment of the common femoral vein. She underwent echocardiogram which revealed right heart strain and a dilated right ventricle. The patient has been initiated on a heparin infusion as chemical thrombolysis is contraindicated. The hematology service has been asked to see her to help coordinate care with the OB and critical care services. Patient reports this is her first lifetime venous thrombi embolism. Review of Systems Constitutional: Denies anorexia Eyes: Denies blind spots Ears, Nose, Mouth, and Throat: Denies change in voice, Denies difficulty swallowing Cardiovascular: Reports shortness of breath, Denies chest pain Comments: Rapid heart rate. Respiratory: Denies cough Gastrointestinal: Denies abdominal pain, Denies bright, red blood in stools, Denies heartburn Genitourinary: Denies hot flashes Musculoskeletal: Denies abnormal walking Skin/Breast: Denies bleeding lesions Neurologic: Denies abnormal speech, Denies localized weakness Psychiatric: Denies anxiety Endocrine: Denies cold intolerance Hematologic/Lymphatic: Denies easy bleeding Allergic/Immunologic: Denies GI upset with certain foods PMFSH - History History Provided By: Patient - Medical / Surgical Hx Neg / Unobtainable Medical Problems Denied: Yes - Social History I have reviewed the patient's Social History: Yes - Tobacco History Second Hand Smoke Exposure: No Tobacco Use In Past 30 Days: No Smoking Status: Never smoker - Alcohol History How Often Do You Have a Drink Containing Alcohol: Never - Substance Use History Substance History: No History of Abuse - Travel History History of Recent Travel: No Recent Travel in the [facility] Within the Last 8 Weeks: No Recent Travel Out of the Country Within the Last 8 Weeks: No - Immunization History Tetanus Immunization: Unsure Hx Influenza Vaccine This Season: No Medications and Allergies Active Medications: Active Medications Heparin Sodium/Dextrose (Heparin/D5w 25,000 U/250 Ml) 25,000 unit in 250 mls @ 13 mls/hr IV.CONT TITRATE PRN; Protocol PRN Reason: Per Protocol Last Admin: 03/25/18 15:18 Dose: 1,300 units/hr, 13 mls/hr Sodium Chloride (Ns Inj) 1,000 mls @ 100 mls/hr IV.CONT .Q10H ANNABELLE Ipratropium [place] (Atrovent Neb) 0.5 mg NEB Q4HR NEB PRN PRN Reason: DYSPNEA Lidocaine HCl (Xylocaine 1% Inj) 0.1 ml I-DERMAL PRN PRN PRN Reason: For IV start Stop: 03/28/18 14:57 Sodium Chloride (Ns Flush) 2 ml IV.FLUSH BID ANNABELLE Last Admin: 03/25/18 15:18 Dose: 2 ml Sodium Chloride (Ns Flush) 2 ml IV.FLUSH PRN PRN PRN Reason: FLUSH AFTER USING IV ACCESS Allergies Allergy/AdvReac Type Severity Reaction Status Date / Time No Known Allergies Allergy Verified 03/25/18 11:00 Home Medications Medication Instructions Recorded Confirmed Type vit,iquu50-ekcv-okius 1 tab PO DAILY 03/25/18 03/25/18 History [PNV 29-1] Physical Exam Vital signs: Vital Signs 03/25/18 10:20 03/25/18 10:21 03/25/18 10:25 Temperature 97.9 F Pulse Rate 157 H 72 Respiratory Rate 20 Blood Pressure 109/75 Pulse Oximetry 03/25/18 10:35 03/25/18 11:05 03/25/18 11:40 Temperature Pulse Rate 142 H 135 H 141 H Respiratory Rate Blood Pressure Pulse Oximetry 03/25/18 11:55 03/25/18 13:20 03/25/18 13:25 Temperature Pulse Rate 141 H 128 H 132 H Respiratory Rate Blood Pressure Pulse Oximetry 03/25/18 13:35 03/25/18 13:50 03/25/18 14:05 Temperature Pulse Rate 128 H 140 H 135 H Respiratory Rate Blood Pressure Pulse Oximetry 03/25/18 14:10 03/25/18 14:30 03/25/18 15:00 Temperature Pulse Rate 130 H 131 H 127 H Respiratory Rate Blood Pressure Pulse Oximetry 03/25/18 15:05 03/25/18 15:10 03/25/18 15:20 Temperature Pulse Rate 129 H 126 H 127 H Respiratory Rate Blood Pressure Pulse Oximetry 03/25/18 15:25 03/25/18 15:26 03/25/18 15:30 Temperature Pulse Rate 127 H 123 H 137 H Respiratory Rate 18 Blood Pressure 111/75 Pulse Oximetry 03/25/18 15:35 03/25/18 16:00 Temperature 98.2 F Pulse Rate 128 H 117 H Respiratory Rate 24 Blood Pressure 109/77 Pulse Oximetry 94 L Intake & Output 03/24/18 03/25/18 03/25/18 18:59 06:59 18:59 Weight 73.936 kg Narrative: General: Young female, laying in bed, appears to be no acute distress. Has mild to moderate difficulty breathing. HEENT: Head atraumatic normal cephalic, conjunctivae non-pale sclerae anicteric. Oral exam: No pharyngeal erythema, no active bleeding noted. Respiratory: Good air movement bilaterally not breath sounds, no wheezing or rhonchi. Cardiovascular: Tachycardic, regular, S1-S2 no obvious murmurs rubs gallops. Abdominal exam: Protuberant, gravid uterus, multiple monitors on her abdomen; monitors. Lower extremities: No pretibial edema no calf tenderness. Skin examination: Nonfocal. HISTORICAL RECORDS ADMINISTRATOR: No focal sensorimotor deficit. Psychiatric: Calm and collected, alert and oriented and understanding of our conversation today. Results - Labs CBC & Chem 7: 03/25/18 10:50 03/25/18 10:50 Labs: Laboratory Results - last 24 hr 03/25/18 03/25/18 03/25/18 10:50 10:50 13:35 WBC 7.5 RBC 4.65 Hgb 10.9 L Hct 34.4 L MCV 74.1 L MCH 23.5 L MCHC 31.8 L RDW 16.4 Plt Count 307 MPV 7.9 PT INR APTT 25.9 Sodium 136 Potassium 4.0 Chloride 103 Carbon Dioxide 22.7 Anion Gap 10 BUN 8 Creatinine 1.00 Estimated GFR 62 L Random Glucose 98 Calcium 8.6 Total Bilirubin 0.9 AST 16 ALT 10 Alkaline Phosphatase 177 H Troponin I Total Protein 7.5 Albumin 2.7 L 03/25/18 03/25/18 03/25/18 13:35 16:56 16:56 WBC RBC Hgb Hct MCV MCH MCHC RDW Plt Count MPV PT 9.5 L 9.8 INR 0.9 1.0 APTT 30.3 Sodium Potassium Chloride Carbon Dioxide Anion Gap BUN Creatinine Estimated GFR Random Glucose Calcium Total Bilirubin AST ALT Alkaline Phosphatase Troponin I 0.62 H* Total Protein Albumin - Imaging Impressions Chest X-Ray 03/25/18 00:00 CONCLUSION: No evidence of acute cardiopulmonary process. Pulmonary Perfusion Imaging 03/25/18 10:53 CONCLUSION: Multiple bilateral subsegmental perfusion abnormalities characteristic of a high risk of pulmonary embolism. Venous Doppler Study 03/25/18 13:40 CONCLUSION: 1. Focal left common femoral vein DVT. 2. No sonographic evidence for right lower extremity DVT. Assessment and Plan - Plan Ms. De Leon is a 38-year-old female, she is 39 weeks . She has been increasingly short of breath for the past 1-2 weeks with significant worsening of the past 2 days. VQ scan performed in the emergency department indicates findings consistent with pulmonary emboli, ultrasound Doppler studies of the lower extremity indicates a left lower extremity common femoral vein segmental deep venous thrombosis. She is not a candidate for thrombolysis at this time due to the . The case was extensively discussed with FIELD CASE MANAGER and critical care medicine. The patient at this time is best served with heparin given her stable clinical condition at this time. Her echocardiogram does indicate RV dysfunction and dilation. Her heart rate however is noted to be stable with a heart rate ranging between 105 and 118 bpm. Her blood pressure stable and her O2 saturation is stable as well, all these findings indicate good perfusion at this time. Her right ventricle is under considerable strain at this time secondary to the gravid uterus and placenta which needs to be perfused as well as the increased resistance secondary to the pulmonary emboli. The risk of cardiac failure and cardiac arrest is high. However, she appears to be clinically stable. It is however imperative, in my opinion, that the baby be delivered as soon as possible. The delivery method which is likely associated with the least amount of post hemorrhage or bleeding will likely be a vaginal delivery. It would be my advice that this patient be induced, following which the patient be treated with a slow right atrial infusion of thrombolytics whilst monitoring her very closely for worsening uterine bleeding. Until such time she delivers I would advise continuing the heparin drip. Thank you for involving me in the care of this very complicated patient. I will be available on my cell phone over the course of tonight in case there are any complications; my cell phone number is [phone]. Discussed Condition With: The patient, her , bedside labor and delivery nurse. FIELD CASE MANAGER attending, critical care attendings.
[2018-03-25 19:17] LABS: Amorphous Sediment,Urine Occasional /hpf; Bacteria,Urine Occasional /hpf; Bilirubin,Urine Negative (Negative); Color,Urine Amber (Yellw/Straw); Glucose,Urine (UA) Negative (Negative); Hyaline Casts,Urine 3 /lpf (0-3); Leukocyte Esterase,Urine Negative (Negative); Mucus,Urine Few /lpf (Occasional); Nitrite,Urine Negative (Negative); Squamous Epithelial Cell,Urine 13 /hpf (0-5); Urobilinogen,Urine 4 or Greater mg/dL (Less than 2)
[2018-03-25 19:18] LABS: Clarity,Urine Hazy (Clear)
--- NOTE | 2018-03-25 20:52 | P.OBGPN ---
Brief note update: After discussion with entire team, including ICU attending, Pulmonary and Hematology consultants, OB Anesthesia and OB attending; recommendation by all for transfer to ICU with ECMO capabilities for possibility of patient's condition deteriorating at time of delivery. As patient is currently not in labor with no cervical waistline joiner overlock approximately 9 hours of monitoring with Category I heart tracing, transfer line contacted and patient transfer accepted to [facility] by ICU Dr. Blake. Patient and informed and consent to transfer, all questions answered. Patient aware of all diagnoses, acute pulmonary embolism, right heart strain, pulmonary hypertension , and critical nature of situation. Transfer orders placed.
== END 2018-03-25 22:25 | disposition short-term general hospital (02) | DRG 831 ==
LOC: HOBED 09:57 → H2E 15:24 → HIMC 15:44
PROVIDERS: ADMIT Obstetrics & Gynecology; ATTEND Obstetrics & Gynecology
CPT/HCPCS: 71010; 71045; 78580; 80053; 81001; 84484; 85027; 85384; 85610; 85730; 87641; 93306; 93970; A9519; A9540; C1094; J1644; J7030